=== PATIENT | male | born 1975 | race Caucasian/White ===

== ENCOUNTER 2017-02-28 23:22 | Observation (INO) | payer MEDICAID ==
[~2017-02-28] VITALS: Ht 175.3 cm; Wt 104.5 kg
[~2017-02-28 23:22] MED LIST: GABA400C
[2017-03-01] MEDS ORDERED: NITROGLYCERIN 2% 1 GM OINT PKT TD STA (00:13)
[2017-03-01] MEDS ORDERED: ASPIRIN 325 MG TAB PO STA (00:13)
[2017-03-01] MEDS ORDERED: morphine 4 MG/ML VIAL IV STA (00:13)
[2017-03-01] MEDS ORDERED: ONDANSETRON 4 MG INJ IV STA (00:13)
[2017-03-01 00:15] VITALS: TEMP 97.7
--- NOTE | 2017-03-01 00:30 | ERA ---
ER Documentation Chief Complaint Date/Time DATE: 03/01/17 TIME: 00:28 Chief Complaint cp since 8pm radiates to left arm HPI This a 42-year-old male with a history of dyspnea with the onset of 8 PM this afternoon when he remained in the knee with complaints of APM with onset of substernal chest pressure radiating to the left shoulder and arm with shortness of breath and diaphoresis. Patient says he tried to walk it off the walking made the pain worse. Patient denies any prior history of cardiac disease denies hypertension diabetes or any medical problems. Pain is moderate to severe, but now is minimal. No palpitations dizziness syncope ROS All systems reviewed and are negative except as per history of present illness. Medications Home Meds Discontinued Reported Medications Gabapentin* (Neurontin*) 400 Mg Capsule 08/03/09 Allergies Allergies: Coded Allergies: No Known Allergy (Unverified , 03/01/17) PMhx/Soc History of Surgery: No Hx Neurological Disorder: No Hx Respiratory Disorders: No Hx Cardiac Disorders: No Hx Miscellaneous Medical Probl: No Hx Alcohol Use: No Hx Substance Use: No Hx Tobacco Use: No FmHx Family History: No coronary disease Physical Exam Vitals Vital Signs Date Time Temp Pulse Resp B/P Pulse Ox O2 Delivery O2 Flow Rate FiO2 03/01/17 00:15 97.7 90 16 148/100 98 Room Air 02/28/17 23:24 98.5 113 20 134/89 96 Physical Exam Const: Well-developed, well-nourished Head: Atraumatic, normocephalic Eyes: Normal Conjunctiva, PERRLA, EOMI, normal sclera, no nystagmus ENT: Normal External Ears, Nose and Mouth, moist mucus membranes. Neck: Full range of motion. No meningismus, no lymphadenopathy. Resp: Clear to auscultation bilaterally, no wheezing, rhonchi, rales Cardio: Regular rate and rhythm, no murmurs, S1 S2 present Abd: Soft, non tender x 4, non distended. Normal bowel sounds, no guarding or rebound, no pulsitile abdominal masses or bruits Skin: No petechiae or rashes, no ecchymosis , no maculopapular rash Back: No midline or flank tenderness Ext: No cyanosis, or edema, FROM x 4, normal inspection, neurovascularly intact x 4 Neur: Awake and alert, STR 5/5 x 4, sensation intact x 4, no focal findings, cerebellum intact Psych: Normal Mood and Affect Result Diagram: 03/01/172 03/01/17 0012 Results 24 hrs Laboratory Tests Test 03/01/17 00:12 White Blood Count 10.510^3/ul Red Blood Count 4.8310^6/ul Hemoglobin 15.3g/dl Hematocrit 44.5% Mean Corpuscular Volume 92.1fl Mean Corpuscular Hemoglobin 31.7pg Mean Corpuscular Hemoglobin Concent 34.4g/dl Red Cell Distribution Width 11.9% Platelet Count 94583^3/UL Mean Platelet Volume 10.3fl Neutrophils % 75.0% Lymphocytes % 16.8% Monocytes % 7.3% Eosinophils % 0.1% Basophils % 0.5% Nucleated Red Blood Cells % 0.0/100WBC Neutrophils # 7.910^3/ul Lymphocytes # 1.810^3/ul Monocytes # 0.810^3/ul Eosinophils # 0.010^3/ul Basophils # 0.110^3/ul Nucleated Red Blood Cells # 0.010^3/ul Sodium Level 138mmol/L Potassium Level 3.8mmol/L Chloride Level 106mmol/L Carbon Dioxide Level 25mmol/L Anion Gap 11 Blood Urea Nitrogen 13mg/dl Creatinine 1.02mg/dl Glucose Level 106mg/dl Calcium Level 9.4mg/dl Troponin I < 0.012ng/ml Current Medications Medications (Trade) Dose Ordered Sig/Raza Route PRN Reason Start Time Stop Time Status Last Admin Dose Admin Aspirin (Aspirin) 325 mg ONCE STAT PO 03/01/17 00:13 03/01/17 00:16 DC 03/01/17 00:38 Nitroglycerin (Nitroglycerin 2% Oint) 1 inch ONCE STAT TD 03/01/17 00:13 03/01/17 00:16 DC 03/01/17 00:43 Morphine Sulfate (morphine) 4 mg ONCE STAT IV 03/01/17 00:13 03/01/17 00:16 DC 03/01/17 00:44 Ondansetron HCl (Zofran Inj) 4 mg ONCE STAT IV 03/01/17 00:13 03/01/17 00:16 DC 03/01/17 00:43 Procedures/MDM EKG: Rate/Rhythm: Sinus tachycardia with inverted T waves in lead III with Q waves in lead III QRS, ST, QT: NORMAL [place], QRS, QT] Impression: abnormal EKG Patient's symptoms are concerning for cardiac cause will require inpatient workup and continuous monitoring. Further w/u for ischemia, arrhythmia, PE or dissection will be deferred to the inpatient team. Accepting Care Team: Current data and ongoing care discussed. Time: Time of admission Primary Provider: [XOXOXO] Consulting: [XOXOXO] Outstanding Data: none PROCEDURE: XR Chest. CLINICAL INDICATION: Chest pain TECHNIQUE: Single frontal view of the chest. COMPARISON: None. FINDINGS: The cardiomediastinal silhouette is within normal limits. The lungs are clear. No signs of pleural fluid or pneumothorax are seen. The osseous structures and soft tissues are unremarkable. IMPRESSION: No evidence for active cardiopulmonary disease. RPTAT: [facility] Physician Meek Date Time Electronically viewed and signed by Physician Meek on 03/01/2017 01:27 RS/ CC: ANGELIQUE SANDERS DO Departure Diagnosis: Primary Impression: Chest pain Qualified Code: R07.9 - Chest pain, unspecified type Condition: Stable ANGELIQUE SANDERS DO Mar 01, 2017 00:30
[2017-03-01 00:39] LABS: BASOPHIL # 0.1 10^3/ul (0.0-0.1); BASOPHILS % 0.5 % (0.0-2.0); EOSINOPHILS % 0.1 % (0.0-7.0); HEMATOCRIT 44.5 % (42.0-52.0); HEMOGLOBIN 15.3 g/dl (14.0-18.0); LYMPHOCYTES # 1.8 10^3/ul (0.8-2.9); LYMPHOCYTES % 16.8 % (15.0-51.0); MEAN CORPUSCULAR HEMOGLOBIN 31.7 pg (29.0-33.0); MEAN CORPUSCULAR HGB CONC 34.4 g/dl (32.0-37.0); MEAN CORPUSCULAR VOLUME 92.1 fl (82.0-101.0); MEAN PLATELET VOLUME 10.3 fl (7.4-10.4); MONOCYTE # 0.8 10^3/ul (0.3-0.9); MONOCYTES % 7.3 % (0.0-11.0); NEUTROPHIL # 7.9 10^3/ul (1.6-7.5); PLATELET COUNT 314 10^3/UL (140-415); RED BLOOD COUNT 4.83 10^6/ul (4.70-6.10); RED CELL DISTRIBUTION WIDTH 11.9 % (11.5-14.5); WHITE BLOOD COUNT 10.5 10^3/ul (4.8-10.8)
[2017-03-01 01:01] LABS: ANION GAP 11 (8-16); BLOOD UREA NITROGEN 13 mg/dl (7-20); CALCIUM 9.4 mg/dl (8.4-10.2); CARBON DIOXIDE 25 mmol/L (21-31); CHLORIDE 106 mmol/L (97-110); CREATININE 1.02 mg/dl (0.61-1.24); GLUCOSE 106 mg/dl (70-220); POTASSIUM 3.8 mmol/L (3.5-5.1); SODIUM 138 mmol/L (135-144)
[2017-03-01 01:15] LABS: TROPONIN-I < 0.012 ng/ml (0.00-0.12)
--- NOTE | 2017-03-01 01:27 | RADRPT ---
PROCEDURE: XR Chest. CLINICAL INDICATION: Chest pain TECHNIQUE: Single frontal view of the chest. COMPARISON: None. FINDINGS: The cardiomediastinal silhouette is within normal limits. The lungs are clear. No signs of pleural f luid or pneumothorax are seen. The osseous structures and soft tissues are unremarkable. IMPRESSION: No evidence for active cardiopulmonary disease. RPTAT: [facility] Physician Meek Date Time Electronically viewed and signed by Physician Meek on 03/01/2017 01:27 RS/
[2017-03-01] MEDS ORDERED: ACETAMINOPHEN 325 MG TAB PO PRN ×2 (02:30→03:00)
[2017-03-01] MEDS ORDERED: NACL 0.9% 3 ML SYG IV SCH (03:00)
[2017-03-01] MEDS ORDERED: DOCUSATE SODIUM 100 MG CAP PO PRN (03:00)
[2017-03-01] MEDS ORDERED: BISACODYL (EC) 5 MG TAB PO PRN (03:00)
[2017-03-01] MEDS: ONDANSETRON 4 MG INJ IV PRN ×2 (04:50→22:41)
[2017-03-01] MEDS: morphine 2 MG INJ IV PRN ×2 (04:51→22:42)
[2017-03-01] MEDS: FAMOTIDINE 20 MG INJ IV SCH ×3 (07:01→23:16)
[2017-03-01] MEDS: ASPIRIN 81 MG TAB PO SCH (09:04)
--- NOTE | 2017-03-01 09:41 | HP ---
Date/Time of Note Date/Time of Note DATE: 03/01/17 TIME: 09:38 Assessment/Plan VTE Prophylaxis VTE Prophylaxis Intervention: SCD's Lines/Catheters IV Catheter Type (from Nrs): Saline Lock Assessment/Plan Chief Complaint/Hosp Course This is a 39-year-old male being admitted to the telemetry floor for: #1 chest pain: Rule out ACS. Will trend troponins 3, first set was negative.. Will order echo:. Will consider cardiology consultation if indicated. #2 DVT GI prophylaxis on SCDs, acid phil Further treatment strategy will be implemented for the clinical course Problems: HPI/ROS Admit Date/Time Admit Date/Time Hx of Present Illness Chief complaint: Chest pain This a 42-year-old male with a history of dyspnea with the onset of 8 PM and substernal chest pressure radiating to the left shoulder and arm with shortness of breath and diaphoresis. Patient says he tried to walk it off the walking made the pain worse. Patient denies any prior history of cardiac disease denies hypertension diabetes or any medical problems. Pain is moderate to severe, but now is minimal. No palpitations dizziness syncope Allergies: NKDA Medications: None ROS Const: As per HPI is Eyes : No pain discharge or redness or change in visual acuity ENT: No pain, sore throat, congestion, congestion, dysphagia or discharge Respiratory: As per HPI Cardiovascular: As per HPI GI : no change in appetite, abdominal pain, nausea, vomiting, diarrhea, constipation, or change in the color his stool Genitourinary: No dysuria, hematuria, flank pain , discharge or CVA tenderness Musculoskeletal: No joint pain, back pain, neck pain, restricted range of motion in neck or joints Skin: No rash, bruising or hives Neuro: No headache, dizziness, syncope, seizure, focal weakness Endocrine: No polyuria, polydipsia, temperature intolerance Psych: No hallucination, depression, anxiety or suicidal ideation PMH/Family/Social Past Medical History Medical History: no pertinent history Past Surgical History Past Surgical Hx: no surgical history Family History Significant Family History: no pertinent family hx Social History Alcohol Use: occasionally Smoking Status: Never smoker Drug Use: none Exam/Review of Systems Vital Signs Vitals Vital Signs Date Time Temp Pulse Resp B/P Pulse Ox O2 Delivery O2 Flow Rate FiO2 03/01/17 09:06 80 18 127/85 98 Room Air 03/01/17 00:15 97.7 Exam Exam General: Patient is lying in bed in no acute distress. HEENT: Atraumatic, normocephalic. The pupils are equal, round and reactive. Extraocular motor are intact Neck: Supple with full range of motion. No rigidity or meningismus Chest: Tenderness to palpation along the anterior chest wall Lungs: Clear to auscultation bilaterally no crackles rales or wheezing Heart: Normal S1-S2, Regular rhythm and rate. No overt murmurs appreciated Abdomen: Soft , nontender, nondistended , bowel sounds are present. No guarding no rebound tenderness , No masses or organomegaly. No costovertebral temporal angle mass Extremities: Normal to inspection, no edema no cyanosis Neurologic: Normal mental status, speech normal, cranial nerves II through XII are intact, motor and sensory are intact, no focal weakness Labs Result Diagram: 03/01/17 0012 03/01/17 0012 Medications Medications Current Medications Aspirin (Aspirin) 81 mg DAILY PO Last administered on 03/01/17 09:04; Admin Dose 81 MG; Start 03/01/17 at 09:00 Acetaminophen (Tylenol Tab) 650 mg Q6H PRN PO PAIN LEVEL 1-3 OR FEVER; Start at 03:00 Morphine Sulfate (morphine) 2 mg Q4H PRN IV PAIN LEVEL 7-10 Last administered on 03/01/17 04:51; Admin Dose 2 MG; Start 03/01/17 at 03:00 Docusate Sodium (Colace) 100 mg Q12H PRN PO CONSTIPATION; Start 03/01/17 at 03: 00 Bisacodyl (Dulcolax) 5 mg DAILY PRN PO CONSTIPATION; Start 03/01/17 at 03:00 Famotidine (Pepcid Iv) 20 mg Q12 IV Last administered on 03/01/17 07:01; Admin Dose 20 MG; Start 03/01/17 at 03:15 STEVEN MASON Mar 01, 2017 09:41
[2017-03-01 09:53] VITALS: Ht 175.3 cm; Wt 104.5 kg
[2017-03-01 10:17] VITALS: BP 124/77; PULSE 71; RESP 18
[2017-03-01 12:00] VITALS: PULSE 76
[2017-03-01 12:53] LABS: CREATINE KINASE 484 IU/L (23-200)
[2017-03-01 13:07] LABS: TROPONIN-I < 0.012 ng/ml (0.00-0.12)
[2017-03-01 16:00] VITALS: PULSE 64
[2017-03-01 19:23] LABS: CREATINE KINASE 444 IU/L (23-200)
[2017-03-01 19:36] LABS: CK-MB 2.04 ng/ml (0.0-2.4); TROPONIN-I < 0.012 ng/ml (0.00-0.12)
[2017-03-01 20:01] VITALS: PULSE 85
--- NOTE | 2017-03-01 21:24 | RADRPT ---
Echocardiogram Report Patient Name: FELICIANO HU Gender: Male Date: 1975 Study Date: 01-Mar-2017 Division Operations Manager: Sherita Mitchell [facility] Location: 3305 Ref. Physician: STEVEN MASON Quality: Technically Difficult Study Procedures: Transthoracic echocardiogram with complete 2D, M-Mode, and doppler examination. Indications: Chest Pain. 2D/M Mode Doppler Measurement Value Normal Ranges Measurement Value Normal Ranges LVIDd 2D 4.8 3.5 - 5.6 cm AV Peak Darrick 1.5 m/sec LVIDs 2D 3.0 2.1 - 4.1 cm AV Peak PG 9.1 mmHg LVPWd 2D 1.0 0.6 - 1.1 cm LVOT Peak Darrick 1.2 m/sec IVSd 2D 1.0 0.6 - 1.1 cm LVOT Peak PG 5.8 mmHg AoR Diam 2D 3.4 2.0 - 3.7 cm MV E Peak Darrick 1.0 m/sec EDV 2D 109.1 cm3 MV A Peak Darrick 0.5 m/sec ESV 2D 27.4 cm3 MV E/A 1.8 LA Dimen 2D 3.1 2.3 - 4.0 cm MV Decel Time 226 msec MV Decel Sibley 4 MV E/A 1.8 TR Peak Darrick 2.6 m/sec TR Peak PG 27.4 mmHg RVSP 30.0 mmHg Findings Left Ventricle: Normal left ventricular systolic function. Normal left ventricular cavity size. Normal left ventricular wall thickness. Ejection fraction is visually estimated at 5560 %. Tissue Doppler/Mitral Doppler indices are within normal limits. Right Ventricle: Normal right ventricular size. Normal right ventricular systolic function. Left Atrium: The left atrium is normal in size. Right Atrium: The right atrium is normal in size. Mitral Valve: Normal appearance of the mitral valve. Mild mitral annular calcification. Trace mitral regurgitation. Aortic Valve: No significant aortic stenosis or insufficiency. Aortic cusps appear mildly calcified. Tricuspid Valve: Normal appearance of the tricuspid valve. Estimated peak PA systolic pressure 30 mmHg. There is trace tricuspid regurgitation. Pulmonic Valve: Normal pulmonic valve appearance. Pericardium: Normal pericardium with no significant pericardial effusion. Aorta: Normal aortic root. IVC: Normal size and normal respiratory collapse consistent with normal right atrial pressure. Conclusions 1.Normal left ventricular systolic function. Normal left ventricular cavity size. Normal left ventricular wall thickness. Ejection fraction is visually estimated at 55-60 %. Tissue Doppler/Mitral Doppler indices are within normal limits. 2.Normal appearance of the mitral valve. Mild mitral annular calcification. Trace mitral regurgitation. 3.Normal appearance of the tricuspid valve. Estimated peak PA systolic pressure 30 mmHg. There is trace tricuspid regurgitation. Electronically Signed By: Mirza Rodriguez 01-Mar-2017 21:23:15 -0700 Patient Name: FELICIANO HU Study Date: 01-Mar-2017 [id number]
[2017-03-02] VITALS (12 sets, daily range): BP systolic 117–146; BP diastolic 65–86; PULSE 63–72; RESP 18–19
[2017-03-02 08:30] LABS: BASOPHIL # 0.1 10^3/ul (0.0-0.1); BASOPHILS % 0.8 % (0.0-2.0); EOSINOPHILS # 0.1 10^3/ul (0.0-0.5); EOSINOPHILS % 1.2 % (0.0-7.0); HEMATOCRIT 42.6 % (42.0-52.0); LYMPHOCYTES # 2.5 10^3/ul (0.8-2.9); LYMPHOCYTES % 27.4 % (15.0-51.0); MEAN CORPUSCULAR HGB CONC 32.9 g/dl (32.0-37.0); MEAN CORPUSCULAR VOLUME 94.5 fl (82.0-101.0); MEAN PLATELET VOLUME 10.7 fl (7.4-10.4); MONOCYTE # 0.8 10^3/ul (0.3-0.9); MONOCYTES % 8.3 % (0.0-11.0); NEUTROPHIL # 5.7 10^3/ul (1.6-7.5); PLATELET COUNT 296 10^3/UL (140-415); RED BLOOD COUNT 4.51 10^6/ul (4.70-6.10); WHITE BLOOD COUNT 9.2 10^3/ul (4.8-10.8)
[2017-03-02 09:10] LABS: ALBUMIN 3.4 g/dl (3.3-4.9); ALBUMIN/GLOBULIN RATIO 1.17; BILIRUBIN,INDIRECT 0.2 mg/dl (0-1.1); BILIRUBIN,TOTAL 0.2 mg/dl (0.2-1.3); CALCIUM 8.5 mg/dl (8.4-10.2); CREATININE 0.91 mg/dl (0.61-1.24); MAGNESIUM 1.9 mg/dl (1.7-2.5); POTASSIUM 4.4 mmol/L (3.5-5.1); TOTAL PROTEIN 6.3 g/dl (6.1-8.1)
[2017-03-02 09:37] LABS: THYROID STIMULATING HORMONE 1.22 MIU/L (0.465-4.680)
[2017-03-02] MEDS: ASPIRIN 81 MG TAB PO SCH (12:05)
[2017-03-02] MEDS: FAMOTIDINE 20 MG INJ IV SCH (12:05)
[2017-03-02] MEDS: morphine 2 MG INJ IV PRN ×2 (12:10→21:55)
--- NOTE | 2017-03-02 15:18 | PN ---
Date/Time of Note Date/Time of Note DATE: 03/02/17 TIME: 15:13 Assessment/Plan VTE Prophylaxis VTE Prophylaxis Intervention: SCD's Lines/Catheters IV Catheter Type (from Nrsg): Saline Lock Assessment/Plan Assessment/Plan 1. Chest pain, atypical, negative troponin ECG, and Echo, follow up with cardiology Subjective 24 Hr Interval Summary Free Text/Dictation constant frontal chest pain Exam/Review of Systems Vital Signs Vitals Vital Signs Date Time Temp Pulse Resp B/P Pulse Ox O2 Delivery O2 Flow Rate FiO2 03/02/17 12:03 98.2 78 19 122/81 98 03/01/17 10:17 Room Air Intake and Output 03/01/17 03/01/17 03/02/17 15:00 23:00 07:00 Intake Total 250 ml Balance 250 ml Exam Constitutional: alert, oriented, well developed Psych: nl mood/affect, no complaints Head: atraumatic, normocephalic Eyes: EOMI, PERRL, nl conjunctiva, nl lids ENMT: nl external ears & nose, nl lips & teeth, nl nasal mucosa & septum Neck: non-tender, supple Respiratory: clear to auscultation, normal air movement, No congested cough, No crackles/rales, No diminished breath sounds, No intercostal retraction, No labored breathing, No other, No respirations, No tactile fremitus, No wheezing Cardiovascular: nl pulses, other (frontal chest wall tenderness), No S3, No S4, No bruits, No diastolic murmur, No edema, No gallop, No irregular rhythm, No jugular venous distention (JVD), No murmurs/extra sounds, No regular rate and rhythm, No rub, No systolic murmur Gastrointestinal: nl liver, spleen, non-tender, soft, No ascites, No bowel sounds, No distended, No firm, No hepatomegaly, No mass , No other, No rebound or guarding, No splenomegaly, No surgical scars, No tender Musculoskeletal: nl extremities to inspection Extremities: normal pulses, No calf tenderness, No clubbing, No cyanosis, No edema, No other, No palpable cord, No pitting pedal edema, No tenderness Neurological: SHOP TECHNICIAN II-XII intact, nl mental status, nl speech, nl strength Skin: nl turgor Results Result Diagram: 9/22/17 0717 9/22/17 0717 Results 24 hrs Laboratory Tests Test 03/01/17 18:40 03/02/17 07:17 Creatine Kinase 444 H Creatine Kinase Index 0.5 Creatinine Kinase MB (Mass) 2.04 Troponin I < 0.012 White Blood Count 9.2 Red Blood Count 4.51 L Hemoglobin 14.0 Hematocrit 42.6 Mean Corpuscular Volume 94.5 Mean Corpuscular Hemoglobin 31.0 Mean Corpuscular Hemoglobin Concent 32.9 Red Cell Distribution Width 12.0 Platelet Count 296 Mean Platelet Volume 10.7 H Neutrophils % 62.0 Lymphocytes % 27.4 Monocytes % 8.3 Eosinophils % 1.2 Basophils % 0.8 Nucleated Red Blood Cells % 0.0 Neutrophils # 5.7 Lymphocytes # 2.5 Monocytes # 0.8 Eosinophils # 0.1 Basophils # 0.1 Nucleated Red Blood Cells # 0.0 Sodium Level 139 Potassium Level 4.4 Chloride Level 103 Carbon Dioxide Level 32 H Anion Gap 8 Blood Urea Nitrogen 15 Creatinine 0.91 Glucose Level 82 Hemoglobin A1c 5.7 Calcium Level 8.5 Magnesium Level 1.9 Total Bilirubin 0.2 Direct Bilirubin 0.00 Indirect Bilirubin 0.2 Aspartate Amino Transf (AST/SGOT) 26 Alanine Aminotransferase (ALT/SGPT) 31 Alkaline Phosphatase 64 Total Protein 6.3 Albumin 3.4 Globulin 2.90 Albumin/Globulin Ratio 1.17 Triglycerides Level 73 Cholesterol Level 99 L LDL Cholesterol, Calculated 51 HDL Cholesterol 33 Cholesterol/HDL Ratio 3.0 Vitamin B12 Level 511 Vitamin D 1,25-Dihydroxy 42.7 Thyroid Stimulating Hormone (TSH) 1.220 Medications Medications Current Medications Aspirin (Aspirin) 81 mg DAILY PO Last administered on 03/02/17 12:05; Admin Dose 81 MG; Start 03/01/17 at 09:00 Acetaminophen (Tylenol Tab) 650 mg Q6H PRN PO PAIN LEVEL 1-3 OR FEVER; Start at 03:00 Morphine Sulfate (morphine) 2 mg Q4H PRN IV PAIN LEVEL 7-10 Last administered on 03/02/17 12:10; Admin Dose 2 MG; Start 03/01/17 at 03:00 Docusate Sodium (Colace) 100 mg Q12H PRN PO CONSTIPATION; Start 03/01/17 at 03: 00 Bisacodyl (Dulcolax) 5 mg DAILY PRN PO CONSTIPATION; Start 03/01/17 at 03:00 Famotidine (Pepcid Iv) 20 mg Q12 IV Last administered on 03/02/17t 12:05; Admin Dose 20 MG; Start 03/01/17 at 03:15 TAMMY TAVAREZ MD Mar 02, 2017 15:18
[2017-03-02] MEDS ORDERED: HYDROCODONE/APAP (5/325) TAB PO PRN (15:30)
--- NOTE | 2017-03-02 16:33 | RADRPT ---
Vent Rate: 64 bpm RR Interval: 0 msec DC Interval: 140 msec QRS Duration: 90 msec QT Interval: 432 msec QTC Interval: 445 msec P-R-T Wickes: 26 - 16 - 44 degrees Normal sinus rhythm Nonspecific T wave abnormality Abnormal ECG Electronically Signed By: Ramy Arzola [id number]
[2017-03-02] MEDS ORDERED: IBUPROFEN 400 MG TAB PO PRN (17:30)
[2017-03-02] MEDS: FAMOTIDINE 20 MG TAB PO SCH (21:53)
--- NOTE | 2017-03-02 22:44 | CONS ---
DATE OF ADMISSION: 03/01/2017 DATE OF CONSULTATION: 03/02/2017 REASON FOR CONSULTATION: Chest pain. Assess for acute coronary syndrome. REQUESTING PHYSICIAN: Dr. Arellano from the hospitalist service. HISTORY OF PRESENT ILLNESS: Mr. Philip is a 42-year-old male with no significant past medical history, initially presented with two days of substernal chest pain initially described as pressure sensation but described to me as a sharp stabbing sensation with, per initial report, associated shortness of breath; to me, no shortness of breath. Patient states the pain is not related to exertional activities, although on initial history he states that it was worse with walking. Initially upon arrival, temperature of 98.5, blood pressure 134/89, pulse 113, respiratory rate 20, satting 93%. LABORATORY: White count 10.5, hemoglobin 15.3, platelet count 314,000. Sodium of 138, potassium 3.8, creatinine 1.0, BUN 13. Troponin negative. TSH of 1.22. LDL 51, HDL 33. Patient underwent a chest x-ray revealing no evidence of acute cardiopulmonary disease. Patient's electrocardiogram revealed normal sinus rhythm, rate of 64, normal axis, normal intervals with inferior biphasic T-wave abnormalities. Patient subsequently admitted to the floor, and since admit to floor has had three negative troponins, ruling him out for acute myocardial infarction. Patient has been placed on aspirin, states he continues to have stabbing chest pains which are reproducible on palpation of his chest. Patient underwent a 2D echo revealing a preserved left ventricular ejection fraction with no wall motion abnormalities. PAST MEDICAL HISTORY: As above in HPI. MEDICATION: Pepcid, aspirin, morphine, Tylenol, Dulcolax. ALLERGIES: NO KNOWN DRUG ALLERGIES. SOCIAL HISTORY: No tobacco. Social ETOH. No illicit drug use. FAMILY HISTORY: Negative for sudden cardiac or early CAD. REVIEW OF SYSTEMS: Per HPI. CONSTITUTIONAL: No fevers, chills. RESPIRATORY: No shortness of breath. CARDIOVASCULAR: Positive chest pain. GASTROINTESTINAL: No vomiting. GENITOURINARY: No hematuria. MUSCULOSKELETAL: Degenerative joint disease. PSYCH: Patient has depression. NEUROLOGIC: No documented history of CVA. PHYSICAL EXAMINATION: VITAL SIGNS: Temperature of 98, blood pressure 117/74, pulse 60, respiratory rate 19, satting 97%. GENERAL: The patient is alert, awake, no acute distress. NECK: JVP approximately 8-9 cm of water. LUNGS: Fair air movement throughout. HEART: Regular rate and rhythm. Normal S1, S2, 1/6 systolic murmur, nondisplaced PMI. ABDOMEN: Positive bowel sounds. Soft. EXTREMITIES: No edema, 1+ pulses. Bilateral posterior tibial. LABORATORY: As noted in HPI, since admit three negative troponins. LDL 51, HDL 33, TSH 1.22. IMAGING STUDIES: As above in HPI with a chest x-ray revealing no acute cardiac abnormalities. ECG as above in HPI. No further electrocardiograms for my review at this time. IMPRESSION: 1. Chest pain. Assess for acute coronary syndrome in a patient with atypical features and reproducible feeling on palpation of chest likely consistent with costochondritis. 2. Abnormal electrocardiogram with nonspecific ST-T wave abnormalities. 3. Dyslipidemia with low HDL. RECOMMENDATIONS: At this time, given patient's negative troponins x3, normal EF by echo and reproducibility of chest pain on palpation of his chest, I believe this patient is reasonable for discharge. Patient should be treated with NSAIDs and should have a follow-up appointment for ongoing chest pain, at which time he can have further outpatient evaluation. Dictated By: Mirza Rodriguez MD /[email or web address]/tonny /Document#: [id number] CC: Fabrizio Arellano MD;*[facility]*
[2017-03-03] VITALS (9 sets, daily range): BP systolic 126–179; BP diastolic 72–91; PULSE 62–76; RESP 17–19
[2017-03-03] MEDS: morphine 2 MG INJ IV PRN (01:22)
[2017-03-03] MEDS: ASPIRIN 81 MG TAB PO SCH (08:17)
[2017-03-03] MEDS: FAMOTIDINE 20 MG TAB PO SCH (08:17)
--- NOTE | 2017-03-03 14:05 | PN ---
Date/Time of Note Date/Time of Note DATE: 03/03/17 TIME: 14:04 Assessment/Plan VTE Prophylaxis VTE Prophylaxis Intervention: SCD's Lines/Catheters IV Catheter Type (from Nrsg): Saline Lock Assessment/Plan Assessment/Plan 1.acute costochondritis 2. atypical chest pain Plan; s/p Cardiology consult ECHO showed normal EF, no WMA d/c home today Subjective 24 Hr Interval Summary Free Text/Dictation no chest pain Exam/Review of Systems Vital Signs Vitals Vital Signs Date Time Temp Pulse Resp B/P Pulse Ox O2 Delivery O2 Flow Rate FiO2 03/03/17 12:10 76 128/83 Room Air 03/03/17 11:56 98.2 19 96 Intake and Output 03/02/17 03/02/17 03/03/17 15:00 23:00 07:00 Intake Total 800 ml 500 ml Balance 800 ml 500 ml Exam Constitutional: alert Psych: no complaints Head: normocephalic Eyes: nl conjunctiva ENMT: nl external ears & nose Respiratory: clear to auscultation, normal air movement Cardiovascular: nl pulses, regular rate and rhythm Gastrointestinal: non-tender, soft Musculoskeletal: nl extremities to inspection, nl gait and stance Results Result Diagram: 03/02/1771603/02/1717 Medications Medications Current Medications Aspirin (Aspirin) 81 mg DAILY PO Last administered on 03/03/17 08:17; Admin Dose 81 MG; Start 03/01/17 at 09:00 Acetaminophen (Tylenol Tab) 650 mg Q6H PRN PO PAIN LEVEL 1-3 OR FEVER; Start at 03:00 Morphine Sulfate (morphine) 2 mg Q4H PRN IV PAIN LEVEL 7-10 Last administered on 03/03/17 01:22; Admin Dose 2 MG; Start 03/01/17 at 03:00 Docusate Sodium (Colace) 100 mg Q12H PRN PO CONSTIPATION; Start 03/01/17 at 03: 00 Bisacodyl (Dulcolax) 5 mg DAILY PRN PO CONSTIPATION; Start 03/01/17 at 03:00 Acetaminophen/ Hydrocodone Bitart ([place] (5/325)) 1 tab Q4H PRN PO pain Last administered on 03/03/17 08:17; Admin Dose 1 TAB; Start 03/02/17 at 15:30 Famotidine (Pepcid) 20 mg BID PO Last administered on 03/03/17t 08:17; Admin Dose 20 MG; Start 03/02/17 at 21:00 Ibuprofen (Motrin) 400 mg Q6 PRN PO pain; Start 03/02/17 at 17:30 LILLIAN PUGH MD Mar 03, 2017 14:05
[2017-03-03] MEDS ORDERED: FAMO20TA18 PO (14:07)
[2017-03-03] MEDS ORDERED: IBUP400T22 PO (14:07)
--- NOTE | 2017-03-03 14:07 | PDOCDIS ---
Discharge Instructions CONDITION Patient Condition: Good HOME CARE INSTRUCTIONS: Special Diet: LOW CHOLESTEROL LOW FAT ACTIVITY: Activity Restrictions: Slowly Increase Activity Rest between Activity Avoid heavy lifting Avoid Heavy Housework FOLLOW UP/APPOINTMENTS Follow-up Plan follow up with his own PMD 1-2 week after discharge - if no PMD care established then follow up at [facility] LILLIAN PUGH MD Mar 03, 2017 14:07
--- NOTE | 2017-03-05 15:05 | DS ---
Date/Time of Note Date/Time of Note DATE: 03/05/17 TIME: 15:05 Discharge Summary Admission/Discharge Info Admit Date/Time Mar 01, 2017 at 02:19 Discharge Date/Time Mar 03, 2017 at 15:27 Hx of Present Illness Chief complaint: Chest pain This a 42-year-old male with a history of dyspnea with the onset of 8 PM and substernal chest pressure radiating to the left shoulder and arm with shortness of breath and diaphoresis. Patient says he tried to walk it off the walking made the pain worse. Patient denies any prior history of cardiac disease denies hypertension diabetes or any medical problems. Pain is moderate to severe, but now is minimal. No palpitations dizziness syncope Allergies: NKDA Medications: None Hospital Course This is a 39-year-old male being admitted to the telemetry floor for: #1 chest pain: Rule out ACS. Will trend troponins 3, first set was negative.. Will order echo:. Will consider cardiology consultation if indicated. #2 DVT GI prophylaxis on SCDs, acid phil Further treatment strategy will be implemented for the clinical course Home Meds Active Scripts Famotidine* (Famotidine*) 20 Mg Tablet, 20 MG PO BID, #60 TAB Prov:LILLIAN PUGH MD 03/03/17 Ibuprofen* (Ibuprofen*) 400 Mg Tablet, 400 MG PO TID Y for pain, #50 TAB Prov:LILLIAN PUGH MD 03/03/17 Discontinued Reported Medications Gabapentin* (Neurontin*) 400 Mg Capsule 08/03/09 Follow-up Plan follow up with his own PMD 1-2 week after discharge - if no PMD care established then follow up at [facility] Provider Care Physician No Primary LILLIAN PUGH MD Mar 05, 2017 15:05
== END 2017-03-03 15:27 | disposition home or self-care (01) ==
LOC: E/R 23:22 → MS3 03-01 02:19 → MS4 03-01 22:55
PROVIDERS: ADMIT Family Medicine; ATTEND Family Medicine
DX: R07.89 Other chest pain (principal); E78.5 Hyperlipidemia, unspecified; R94.31 Abnormal electrocardiogram [ECG] [EKG]
CPT/HCPCS: 71010; 80048; 80053; 80061; 82550; 82553; 82607; 82652; 83036; 83735; 84443; 84484; 85025; 93005; 93306; J2270; J2405; Z7500; Z7610; G0378

== ENCOUNTER 2017-06-01 22:30 | Emergency (ER) | payer OTHER ==
[~2017-06-01] VITALS: Ht 182.9 cm; Wt 103.7 kg
[~2017-06-01 22:30] MED LIST changes: +FAMO20TA18 PO; -GABA400C; +IBUP400T22 PO
[2017-06-01 22:34] VITALS: Ht 182.9 cm; Wt 103.7 kg
[2017-06-01 23:37] VITALS: TEMP 98.7
--- NOTE | 2017-06-01 23:38 | ERD ---
ER Documentation Chief Complaint Chief Complaint chest pain x 2 days HPI The patient is a 42-year-old male, presenting to the ER because of bilateral chest pain radiating to the left shoulder intermittent for 2 days, worse with movement. He had similar symptoms in February 2017, was admitted and had extensively had a good workup that was unremarkable. He denies fever, chills, neck pain, chest chest pain with exertion/vomiting/diaphoresis, dyspnea, abdominal pain, vomiting, dysuria, diarrhea. He denies smoking, drinking, using illicit drug Medical/surgical history: None ROS All systems reviewed and are negative except as per history of present illness. Medications Home Meds Active Scripts Ibuprofen* (Motrin*) 600 Mg Tab, 600 MG PO Q6, #30 TAB Prov:MANN PIMENTEL MD 06/02/17 Famotidine* (Famotidine*) 20 Mg Tablet, 20 MG PO BID, #60 TAB Prov:LILLIAN PUGH MD 03/03/17 Ibuprofen* (Ibuprofen*) 400 Mg Tablet, 400 MG PO TID Y for pain, #50 TAB Prov:LILLIAN PUGH MD 03/03/17 Allergies Allergies: Coded Allergies: No Known Allergy (Unverified , 03/01/17) PMhx/Soc History of Surgery: No Anesthesia Reaction: No Hx Neurological Disorder: No Hx Respiratory Disorders: No Hx Cardiac Disorders: No Hx Psychiatric Problems: No Hx Miscellaneous Medical Probl: No Hx Alcohol Use: Yes (Social) Hx Substance Use: No Hx Tobacco Use: No Physical Exam Vitals Vital Signs Date Time Temp Pulse Resp B/P Pulse Ox O2 Delivery O2 Flow Rate FiO2 06/02/17 03:48 77 18 126/88 97 Room Air 06/02/17 03:02 72 15 125/83 98 Room Air 06/01/17 23:37 98.7 73 17 136/100 99 Room Air 06/01/17 22:34 98.3 89 20 151/90 97 Physical Exam Const: No acute distress. Head: Atraumatic. Eyes: Normal Conjunctiva. ENT: Normal External Ears, Nose and Mouth. Neck: Full range of motion. No meningismus. Resp: Clear to auscultation bilaterally. Cardio: Regular rate and rhythm. Bilateral chest discomfort with palpation, no crepitus Abd: Soft, non distended, normal bowel sounds, non tender. Skin: No petechiae or rashes. Back: No midline or flank tenderness. Ext: No cyanosis, or edema. Neur: Awake and alert. No focal deficit Psych: Normal Mood and Affect. Result Diagram: 06/01/17 2340 06/01/17 2340 Results 24 hrs Laboratory Tests Test 06/01/17 23:40 06/02/17 02:15 White Blood Count 9.510^3/ul Red Blood Count 4.8210^6/ul Hemoglobin 15.0g/dl Hematocrit 44.3% Mean Corpuscular Volume 91.9fl Mean Corpuscular Hemoglobin 31.1pg Mean Corpuscular Hemoglobin Concent 33.9g/dl Red Cell Distribution Width 12.4% Platelet Count 62159^3/UL Mean Platelet Volume 10.3fl Neutrophils % 74.6% Lymphocytes % 16.9% Monocytes % 7.3% Eosinophils % 0.2% Basophils % 0.7% Nucleated Red Blood Cells % 0.0/100WBC Neutrophils # 7.110^3/ul Lymphocytes # 1.610^3/ul Monocytes # 0.710^3/ul Eosinophils # 0.010^3/ul Basophils # 0.110^3/ul Nucleated Red Blood Cells # 0.010^3/ul D-Dimer 250.84ng/ml D-Dimer Comment Sodium Level 143mmol/L Potassium Level 4.1mmol/L Chloride Level 105mmol/L Carbon Dioxide Level 26mmol/L Anion Gap 16 Blood Urea Nitrogen 10mg/dl Creatinine 0.83mg/dl Glucose Level 118mg/dl Calcium Level 9.8mg/dl Troponin I < 0.012ng/ml < 0.012ng/ml Ethyl Alcohol Level < 10.0mg/dl Current Medications Medications (Trade) Dose Ordered Sig/Raza Route PRN Reason Start Time Stop Time Status Last Admin Dose Admin Ketorolac Tromethamine (Toradol) 30 mg ONCE STAT IV 06/01/17 23:48 06/01/17 23:50 DC 06/01/17 23:55 Procedures/MDM [place] [id number] Radiology Main Line: [phone] DIAGNOSTIC IMAGING REPORT Patient: FELICIANO HU : 1975 Age: 42 Sex: M MR #: [id number] DOS: 06/01/17 2348 Ordering MD: MANN PIMENTEL MD Location: E/R Room/Bed: PROCEDURE: XR Chest. CLINICAL INDICATION: Chest pain. TECHNIQUE: Portable AP view of the chest was obtained. COMPARISON: None. FINDINGS: The cardiomediastinal silhouette is within normal limits. The lungs are clear. There is no evidence for pleural effusion, pneumothorax or pulmonary vascular congestion. The osseous structures are intact with no evidence for acute abnormality. RPTAT:HJJR IMPRESSION: No evidence for acute intrathoracic pathology. Physician Jeyson Date Time Electronically viewed and signed by Nash Brush Physician on 06/02/2017 00:27 JR/ CC: MANN PIMENTEL MD EK hour read by emergency physician Rate/Rhythm: Normal Sinus Rhythm 74 beats/min QRS, ST, T-waves: No ST elevation, NS T abn Impression: Abnormal EKG EK hour read by emergency physician Rate/Rhythm: Normal Sinus Rhythm 74 beats/min QRS, ST, T-waves: No ST elevation, Prolong QT Impression: Abnormal EKG MEDICAL MAKING DECISION: The patient is a 42-year-old male, presenting with chest pain, consistent with acute chest wall pain. He was treated with Toradol 30 mg IV for pain with good response The differential diagnoses considered include but are not limited to acute coronary syndrome, acute myocardial infarction, pericarditis, pulmonary embolism , aortic dissection, pneumonia, pleural effusion, pneumothorax, GERD, chest wall pain. Departure Diagnosis: Primary Impression: Chest pain Condition: Good Comments He was discharged with Motrin The patient's blood pressure was elevated (>120/80) but appears stable without evidence of hypertension emergency or urgency. The patient was counseled about the risks of hypertension and urged to pursue outpatient monitoring and therapy within a week with their primary care physician. I discussed the findings with the patient. I advised the patient to follow-up with the primary physician in about 1-2 days, sooner if needed and return if any concern. Disclaimer: Inadvertent spelling and grammatical errors are likely due to EHR/ dictation software use and do not reflect on the overall quality of patient care. Also, please note that the electronic time recorded on this note does not necessarily reflect the actual time of the patient encounter. MANN PIMENTEL MD Jun 01, 2017 23:38
[2017-06-01] MEDS ORDERED: KETOROLAC 30 MG INJ IV STA (23:48)
[2017-06-02 00:13] LABS: BASOPHIL # 0.1 10^3/ul (0.0-0.1); BASOPHILS % 0.7 % (0.0-2.0); EOSINOPHILS % 0.2 % (0.0-7.0); HEMATOCRIT 44.3 % (42.0-52.0); LYMPHOCYTES # 1.6 10^3/ul (0.8-2.9); LYMPHOCYTES % 16.9 % (15.0-51.0); MEAN CORPUSCULAR HEMOGLOBIN 31.1 pg (29.0-33.0); MEAN CORPUSCULAR HGB CONC 33.9 g/dl (32.0-37.0); MEAN CORPUSCULAR VOLUME 91.9 fl (82.0-101.0); MEAN PLATELET VOLUME 10.3 fl (7.4-10.4); MONOCYTE # 0.7 10^3/ul (0.3-0.9); MONOCYTES % 7.3 % (0.0-11.0); NEUTROPHIL # 7.1 10^3/ul (1.6-7.5); NEUTROPHILS % 74.6 % (39.0-77.0); PLATELET COUNT 306 10^3/UL (140-415); RED BLOOD COUNT 4.82 10^6/ul (4.70-6.10); RED CELL DISTRIBUTION WIDTH 12.4 % (11.5-14.5); WHITE BLOOD COUNT 9.5 10^3/ul (4.8-10.8)
--- NOTE | 2017-06-02 00:28 | RADRPT ---
PROCEDURE: XR Chest. CLINICAL INDICATION: Chest pain. TECHNIQUE: Portable AP view of the chest was obtained. COMPARISON: None. FINDINGS: The cardiomediastinal silhouette is within normal limits. The lungs are clear. There is no evidenc e for pleural effusion, pneumothorax or pulmonary vascular congestion. The osseous structures are i ntact with no evidence for acute abnormality. RPTAT:HJJR IMPRESSION: No evidence for acute intrathoracic pathology. Physician Jeyson Date Time Electronically viewed and signed by Physician Jeyson on 06/02/2017 00:27 JR/
[2017-06-02 00:35] LABS: ANION GAP 16 (8-16); BLOOD UREA NITROGEN 10 mg/dl (7-20); CALCIUM 9.8 mg/dl (8.4-10.2); CARBON DIOXIDE 26 mmol/L (21-31); CHLORIDE 105 mmol/L (97-110); CREATININE 0.83 mg/dl (0.61-1.24); GLUCOSE 118 mg/dl (70-220); POTASSIUM 4.1 mmol/L (3.5-5.1); SODIUM 143 mmol/L (135-144)
[2017-06-02 00:38] LABS: ETHANOL < 10.0 mg/dl
[2017-06-02 01:09] LABS: TROPONIN-I < 0.012 ng/ml (0.00-0.12)
[2017-06-02 01:13] LABS: D-DIMER 250.84 ng/ml (<460)
[2017-06-02] MEDS ORDERED: IBUP-1542 PO (03:14)
[2017-06-02 03:48] VITALS: BP 126/88; PULSE 77; RESP 18
== END 2017-06-02 07:41 | disposition home or self-care (01) ==
LOC: E/R 22:30
DX: R07.89 Other chest pain (principal)
CPT/HCPCS: 36415; 71010; 80048; 80306; 84484; 85025; 85378; 96374; J1885; Z7502; 93005